=== PATIENT | female | born 1995 | race Caucasian/White ===

== ENCOUNTER → 2021-02-12 | Outpatient (CLI) | payer OTHER ==
[2021-02-12 10:14] LABS: ABSOLUTE EOSINOPHILS 0.1 thou/uL (0.0-0.7); ABSOLUTE LYMPHOCYTES 1.6 thou/uL (0.8-5.3); ABSOLUTE MONOCYTES 0.4 thou/uL (0.0-1.2); ABSOLUTE NEUTROPHILS 2.4 thou/uL (1.6-8.1); BASOPHILS 0.6 %; EOSINOPHILS 2.3 %; HEMATOCRIT 39.3 % (37.0-47.0); HEMOGLOBIN 13.1 gm/dL (12.0-15.0); LYMPHOCYTES 34.5 %; MCH 32.4 pg (26.0-34.0); MCHC 33.4 g/dL (28.0-37.0); MCV 97.1 fL (80.0-100.0); MONOCYTES 9.1 %; MPV 8.2 fl. (7.2-11.1); NUCLEATED RBCS 0 /100WBC; PLATELET COUNT* 244 thou/uL (150-400); POLYS 53.5 %; RBC 4.04 mil/uL (4.20-5.00); RDW-CV 12.3 % (10.5-14.5); WBC 4.5 thou/uL (4.0-11.0)
[2021-02-12 10:28] LABS: ALBUMIN 4.1 g/dL (3.4-5.0); ALKALINE PHOSPHATASE 71 U/L (46-116); ANION GAP 8 mmol/L (7-16); BUN 10 mg/dL (7-18); CHLORIDE 103 mmol/L (98-107); CHOLESTEROL 162 mg/dL (<200); CO2 29 mmol/L (21-32); CREATININE 0.7 mg/dL (0.6-1.3); GLUCOSE 100 mg/dL (70-99); HDL CHOLESTEROL 58 mg/dL (>40); LDL CHOLESTEROL 94 mg/dL (<100); POTASSIUM 4.9 mmol/L (3.5-5.1); SERUM ASSESSMENT Clear; SGOT 14 U/L (15-37); SGPT 27 U/L (30-65); SODIUM 140 mmol/L (136-145); TC:HDL 2.8 Ratio (Not establshd); TOTAL BILIRUBIN 0.4 mg/dL (<0.1-1.0); TOTAL PROTEIN 7.7 g/dL (6.4-8.2); TRIGLYCERIDE 54 mg/dL (<150); VLDL 11 mg/dL (<40)
[2021-02-12 11:49] LABS: ESR (SEDRATE) 8 mm/hr (0-20)
== END ==
LOC: M.LAB 09:55
PROVIDERS: ATTEND Internal Medicine
DX: Z00.00 Encounter for general adult medical examination without abnormal findings (principal); M25.549 Pain in joints of unspecified hand